=== PATIENT | female | born 1985 | race Caucasian/White ===

== ENCOUNTER 2022-12-31 07:34 | Emergency (ER) | payer MEDICAID ==
[~2022-12-31] VITALS: Ht 154.9 cm; Wt 75.0 kg
[~2022-12-31 07:34] MED LIST: CLIN-214 PO; CLIN-97 PO; CYCL-1 PO; HYDR-3972 PO; IBUP-1984 PO
[2022-12-31 08:20] LABS: BASOPHILS # (AUTO) 0.1 X10'3 (0-0.2); BASOPHILS % (AUTO) 0.4 % (0-1); EOSINOPHILS # (AUTO) 0.1 X10'3 (0-0.9); EOSINOPHILS % (AUTO) 1.1 % (0-6); HEMATOCRIT 45.5 % (35.0-45.0); HEMOGLOBIN 15.4 g/dl (12.0-16.0); LYMPHOCYTES # (AUTO) 1.7 X10'3 (1.1-4.8); MEAN CORPUSCULAR HEMOGLOBIN 33.5 PG (27.0-31.0); MEAN CORPUSCULAR HGB CONC 33.9 g/dL (33.0-36.5); MEAN CORPUSCULAR VOLUME 98.9 FL (78-98); MEAN PLATELET VOLUME 8.1 FL (7.4-10.4); MONOCYTES # (AUTO) 0.9 X10'3 (0-0.9); MONOCYTES % (AUTO) 8.1 % (2-12); NEUTROPHILS # (AUTO) 8.6 X10'3 (1.8-7.7); NEUTROPHILS % (AUTO) 75.4 % (42-75); PLATELET COUNT 451 X10'3 (140-440); RED CELL DISTRIBUTION WIDTH 12.8 % (11.5-14.5); WHITE BLOOD COUNT 11.5 X10'3 (4.5-11.0)
[2022-12-31 08:26] LABS: ALANINE AMINOTRANSFERASE 26 U/L (12-78); ALBUMIN 4.1 G/DL (3.4-5.0); ALBUMIN/GLOBULIN RATIO 1.1 (1.1-1.5); ALKALINE PHOSPHATASE 100 IU/L (46-116); ANION GAP 10 (8-16); ASPARTATE AMINO TRANSFERASE 18 U/L (10-37); BILIRUBIN,TOTAL 0.5 MG/DL (0.1-1.0); BLOOD UREA NITROGEN 6 MG/DL (7-18); BUN/CREATININE RATIO 9.2 (10.0-20.0); CALCIUM 9.7 MG/DL (8.5-10.1); CHLORIDE 103 MMOL/L (99-107); CREATININE 0.65 MG/DL (0.40-0.90); GLUCOSE 101 MG/DL (70-104); SODIUM 139 MMOL/L (135-145); TOTAL CARBON DIOXIDE 25.8 MMOL/L (24-32); TOTAL PROTEIN 7.9 G/DL (6.4-8.2); eCRCL 91 ML/MIN; eGFR > 90 ML/MIN
[2022-12-31 08:33] LABS: PRO BRAIN NATRIURETIC PEPTIDE 217 PG/ML (0-125)
[2022-12-31] MEDS ORDERED: pantoprazole 40MG/NS 100ML BAG 100 ML IV ONE (09:35)
[2022-12-31 09:50] LABS: BILIRUBIN,URINE NEGATIVE (Neg); CLARITY,URINE SLIGHTLY CLOUDY (Clear); COLOR,URINE YELLOW (Yellow); GLUCOSE, URINE NEGATIVE (Neg); KETONES,URINE NEGATIVE (Neg); LEUKOCYTE ESTERASE ,URINE NEGATIVE (Neg); NITRITES, URINE NEGATIVE (Neg); OCCULT BLOOD,URINE NEGATIVE (Neg); PROTEIN,URINE NEGATIVE (Neg); UROBILINOGEN,URINE 0.2 E.U/dL (0.2-1.0)
[2022-12-31 09:55] LABS: LIPASE 61 U/L (73-393)
[2022-12-31 09:57] LABS: D-DIMER 0.38 MG/L FEU (0-0.50)
[2022-12-31 09:58] LABS: UA COLLECTION TYPE CLN CATCH MIDSTREAM
[2022-12-31 10:07] LABS: URINE AMPHETAMINE SCREEN NEGATIVE (Neg); URINE BARBITUATE SCREEN NEGATIVE (Neg); URINE BENZODIAZEPINES SCREEN NEGATIVE (Neg); URINE CANNABINOID SCREEN NEGATIVE (Neg); URINE COCAINE SCREEN NEGATIVE (Neg); URINE METHADONE SCREEN NEGATIVE (Neg); URINE OPIATE SCREEN NEGATIVE (Neg); URINE PHENCYCLIDINE SCREEN NEGATIVE (Neg)
[2022-12-31 10:16] LABS: BACTERIA,URINE NONE SEEN /HPF (Neg); RBC,URINE 0-2 /HPF (0-2); SQUAMOUS EPITHELIAL CELL,UR FEW /LPF (FEW); WBC,URINE 0-4 /HPF (0-4)
[2022-12-31] MEDS ORDERED: LIDOcaine Viscous 15ml cup MM PRN (10:25)
[2022-12-31] MEDS ORDERED: mag hydrox/Alum hydrox/simeth 30ml oral suspension PO ONE (10:25)
[2022-12-31 10:34] LABS: HCG SERUM QL NEGATIVE
--- NOTE | 2022-12-31 10:42 | NUR ---
DELICIA DELGADO, PATIENT WAS EVALUATED AT [facility]. PLEASE EXCUSE PATIENT FORM WORK ON 12/30/22 TO 12/31/22. PATIENT IS CLEARED TO RETURN TO WORK ON 01/01/23. PLEASE CONTACT PRIMARY CARE PHYSICIAN WITH ANY FOLLOW UP QUESTIONS. RESPECTFULLY, Murali ISBELL.
--- NOTE | 2022-12-31 10:48 | NUR ---
PATIENT WAS EVALUATED AT [facility]. PLEASE EXCUSE PATIENT FROM WORK ON 12/31/2022 TO 01/01/2023. PATIENT IS CLEARED TO RETURN TO WORK ON 01/02/2023. PLEASE CONTACT PRIMARY CARE PHYSICIAN WITH ANY FOLLOW UP QUESTIONS. RESPECTFULLY, DR. ANN M.D.
[2022-12-31] MEDS ORDERED: OMEP40CA21 PO (11:02)
[2022-12-31 11:23] VITALS: BP 131/95; PULSE 84; RESP 18; TEMP 98.5; O2SAT 94
== END 2022-12-31 11:26 | disposition home or self-care (01) ==
LOC: ER 07:34
DX: R07.89 Other chest pain (principal); K21.9 Gastro-esophageal reflux disease without esophagitis; G89.29 Other chronic pain; Z72.89 Other problems related to lifestyle; Z79.2 Long term (current) use of antibiotics; Z79.899 Other long term (current) drug therapy; Z88.0 Allergy status to penicillin; Z88.5 Allergy status to narcotic agent; Z88.8 Allergy status to other drugs, medicaments and biological substances
CPT/HCPCS: 36415; 71045; 80053; 80305; 81001; 83690; 83880; 84484; 84703; 85025; 85379; 93005; 99285

== ENCOUNTER 2023-03-31 08:57 | Day surgery (SDC) | payer MEDICAID ==
[2023-03-27 08:45] LABS: BASOPHILS # (AUTO) 0.1 X10'3 (0-0.2); BASOPHILS % (AUTO) 1.1 % (0-1); EOSINOPHILS # (AUTO) 0.2 X10'3 (0-0.9); EOSINOPHILS % (AUTO) 3.6 % (0-6); HEMATOCRIT 43.2 % (35.0-45.0); HEMOGLOBIN 14.6 g/dl (12.0-16.0); LYMPHOCYTES # (AUTO) 1.4 X10'3 (1.1-4.8); LYMPHOCYTES % (AUTO) 23.2 % (21-51); MEAN CORPUSCULAR HEMOGLOBIN 33.9 PG (27.0-31.0); MEAN CORPUSCULAR HGB CONC 33.9 g/dL (33.0-36.5); MEAN CORPUSCULAR VOLUME 100.1 FL (78-98); MEAN PLATELET VOLUME 7.8 FL (7.4-10.4); MONOCYTES # (AUTO) 0.7 X10'3 (0-0.9); MONOCYTES % (AUTO) 11.9 % (2-12); NEUTROPHILS # (AUTO) 3.7 X10'3 (1.8-7.7); NEUTROPHILS % (AUTO) 60.2 % (42-75); PLATELET COUNT 337 X10'3 (140-440); RED BLOOD COUNT 4.32 X10'6 (4.20-5.60); RED CELL DISTRIBUTION WIDTH 13.4 % (11.5-14.5); WHITE BLOOD COUNT 6.1 X10'3 (4.5-11.0)
[2023-03-27 09:03] LABS: ALANINE AMINOTRANSFERASE 190 U/L (12-78); ALBUMIN 3.8 G/DL (3.4-5.0); ALKALINE PHOSPHATASE 82 IU/L (46-116); ANION GAP 10 (8-16); ASPARTATE AMINO TRANSFERASE 140 U/L (10-37); BILIRUBIN,TOTAL 0.5 MG/DL (0.1-1.0); BLOOD UREA NITROGEN 8 MG/DL (7-18); BUN/CREATININE RATIO 12.9 (10.0-20.0); CALCIUM 8.9 MG/DL (8.5-10.1); CHLORIDE 103 MMOL/L (99-107); CREATININE 0.62 MG/DL (0.40-0.90); GLUCOSE 80 MG/DL (70-104); POTASSIUM 4.4 MMOL/L (3.5-5.1); SODIUM 137 MMOL/L (135-145); TOTAL CARBON DIOXIDE 23.7 MMOL/L (24-32); TOTAL PROTEIN 7.7 G/DL (6.4-8.2); eGFR > 90 ML/MIN
[2023-03-31] VITALS (14 sets, daily range): BP systolic 79–125; BP diastolic 31–88; PULSE 75–102; RESP 12–18; TEMP 98.4; O2SAT 93–100
[~2023-03-31] VITALS: Ht 152.4 cm; Wt 66.2 kg
[~2023-03-31 08:57] MED LIST changes: -CLIN-214 PO; -CLIN-97 PO; -CYCL-1 PO; -HYDR-3972 PO; -IBUP-1984 PO; +LOSA50TA64 PO; +OMEP40CA21 PO; +albuterol 2.5 MG/3 ML nebule NEB ONE; +clindamycin-Cleocin 900mg/D5W 50 ML IV ONE; +famotidine 20mg tablet PO ONE; +ringers solution, lacted 1,000 ML IV SCH
[2023-03-31] MEDS ORDERED: ondansetron/PF 4mg/2ml inj IV PRN (10:05)
[2023-03-31] MEDS ORDERED: labetalol 20mg/4ml (5mg/ml) syringe IV PRN (10:05)
[2023-03-31] MEDS ORDERED: morphine 2 MG/ML inj. syringe IV PRN (10:05)
[2023-03-31] MEDS ORDERED: ringers solution, lacted 1,000 ML IV SCH (10:05)
[2023-03-31] MEDS ORDERED: fentaNYL/PF 50MCG/1 ML 2ML syringe IV PRN ×2 (10:05)
[2023-03-31] MEDS ORDERED: hydrALAZINE 20mg/ml inj. IV PRN (10:05)
[2023-03-31] MEDS ORDERED: midazolam 1 mg/ML 2ml injection IV PRN (11:15)
[2023-03-31] MEDS ORDERED: rocuronium 10mg/ml inj IV ONE ×2 (11:18→11:21)
[2023-03-31] MEDS ORDERED: glycopyrrolate 0.2mg/ml inj ONE (11:18)
[2023-03-31] MEDS ORDERED: propofol 10mg/ml 20ml vial IV ONE (11:18)
[2023-03-31] MEDS ORDERED: neostigmine methylsulfate 1 MG/ML 10ml vial ONE (11:18)
[2023-03-31] MEDS ORDERED: sevoflurane 250ml liquid IH ONE (11:18)
[2023-03-31] MEDS ORDERED: MIDAZolam 1 MG/ML 5ML VIAL ONE (11:20)
[2023-03-31] MEDS ORDERED: fentaNYL/PF 50MCG/1 ML 2ML syringe ONE (11:20)
[2023-03-31] MEDS ORDERED: propofol inj 20 ML IV ONE (11:21)
[2023-03-31] MEDS ORDERED: dexamethasone sod phosphate 4mg/ml inj. ONE (11:21)
[2023-03-31] MEDS ORDERED: LIDOcaine 2% (20mg/ml) 5ml vial ONE (11:21)
[2023-03-31] MEDS ORDERED: ondansetron/PF 4mg/2ml inj ONE (11:22)
[2023-03-31] MEDS ORDERED: LIDOcaine 1% 30ml preserv. free vial IJ ONE (11:53)
[2023-03-31] MEDS ORDERED: metoprolol tartrate 1mg/ml inj IV ONE (11:53)
[2023-03-31] MEDS ORDERED: BUPIVACAINE liposomal/PF 13.3 MG/ML vial IM ONE (11:53)
[2023-03-31] MEDS ORDERED: BUPIVAcaine/PF 2.5 mg/ml (0.25%) 30ml vial IJ ONE ×2 (11:53)
[2023-03-31] MEDS ORDERED: sugammadex 200mg/2ml injection IV ONE (12:39)
[2023-03-31] MEDS ORDERED: oxyCODONE/APAP 5-325mg tablet PO PRN (13:05)
[2023-03-31] MEDS: morphine 4 MG/ML inj SYRINge IV PRN ×2 (13:36→13:53)
== END 2023-03-31 15:16 | disposition home or self-care (01) ==
LOC: PRE-OP 08:57 → PAS 15:16
PROVIDERS: ATTEND Surgery
DX: K43.2 Incisional hernia without obstruction or gangrene (principal); I10 Essential (primary) hypertension; E66.9 Obesity, unspecified; K21.00 Gastro-esophageal reflux disease with esophagitis, without bleeding; Z79.1 Long term (current) use of non-steroidal anti-inflammatories (NSAID); Z79.899 Other long term (current) drug therapy; Z90.49 Acquired absence of other specified parts of digestive tract; Z90.710 Acquired absence of both cervix and uterus; Z98.890 Other specified postprocedural states; Z68.27 Body mass index [BMI] 27.0-27.9, adult; Z88.0 Allergy status to penicillin; Z88.2 Allergy status to sulfonamides; Z82.3 Family history of stroke; Z82.61 Family history of arthritis; Z82.49 Family history of ischemic heart disease and other diseases of the circulatory system
CPT/HCPCS: 36415; 49615; 64488; 80053; 82948; 85025; C1776; C1781; C9290; J1100; J2250; J2270; J2405; J2704; J2710; J3010; J3490; J7030; J7120; Z7506; Z7508; Z7512; A4215; A4618